=== PATIENT | male | born 1965 | race African-American/Black ===

== ENCOUNTER 2018-10-28 07:42 | Day surgery (SDC) | payer MEDICAID ==
--- NOTE | 2018-10-28 09:31 | NUR ---
PT AMBULATED TO UNIT. PT IS A&OX4. JAN IS AT BEDSIDE. PT IS ABLE TO SIGN FOR HIMSELF. CONSENT IS SIGNED AND BELONGINGS GIVEN TO . PT IS AWAITING TO BE TAKEN TO OR.
[2018-10-28] MEDS ORDERED: HYDROMORPHONE INJ 2 MG/ML DISP.SYRIN ONE (10:31)
[2018-10-28] MEDS ORDERED: MIDAZOLAM HCL 2 MG/2ML VIAL ONE (10:32)
[2018-10-28] MEDS ORDERED: ROCURONIUM BROMIDE 50 MG/5 ML ONE (10:32)
[2018-10-28] MEDS ORDERED: EPINEPHRINE (1:1000) 1 MG/ML AMPUL ONE (10:53)
[2018-10-28] MEDS ORDERED: BUPIVACAINE 0.5 % PF 150 MG/30 ML VIAL ONE (10:53)
[2018-10-28] MEDS ORDERED: LABETALOL HCL IV 100MG VIAL ONE (11:51)
[2018-10-28] MEDS ORDERED: BUPIVACAINE 0.25% 75 MG/30 ML VIAL ONE (12:14)
[2018-10-28] MEDS ORDERED: FENTANYL PF 100MCG/2ML AMPUL ONE (12:17)
[2018-10-28] MEDS ORDERED: hydrALAZINE HCL IV 20 MG VIAL ONE (12:48)
[2018-10-28] MEDS ORDERED: HYDROCODONE/APAP 5/325MG 1 EACH TABLET PO PRN (14:30)
--- NOTE | 2018-10-28 14:56 | NUR ---
PT STATING HE FEELS FINE AND O2 SAT WAS 93% ON RA PT WAS ASLEEP WHEN AWOKEN PT SATURATION INCREASED TO 100%
[2018-10-28 15:00] VITALS: BP 116/65
[2018-10-28 15:19] VITALS: BP 123/69
--- NOTE | 2018-10-28 15:45 | NUR ---
D/C NOTES PT IS A&OX4. PT STATES PAIN LEVEL IS ACCEPTABLE, RATES PAIN AT A 3 OUT OF 10. PT WAS ABLE TO DRESS HIMSELF AND WAS ESCORTED BY WHO WILL BE DRIVING HIM HOME. PT TAKEN OUT BY WHEELCHAIR AND DRIVEN HOME IN PRIVATE CAR.
== END 2018-10-28 16:00 | disposition home or self-care (01) ==
LOC: DS 07:42 → MED 07:44 → UNDOADMIN 07:44 → UNDODISIN 15:45 → DS 16:00
PROVIDERS: ATTEND Specialist
DX: M75.41 Impingement syndrome of right shoulder (principal); M94.211 Chondromalacia, right shoulder; M65.811 Other synovitis and tenosynovitis, right shoulder; J45.909 Unspecified asthma, uncomplicated; E66.01 Morbid (severe) obesity due to excess calories; M75.101 Unspecified rotator cuff tear or rupture of right shoulder, not specified as traumatic; Z79.899 Other long term (current) drug therapy
CPT/HCPCS: 23412; 29824; 29826; 88305; 88311; A4217; A6253; A6402; J0171; J0360; J0690; J1100; J1170; J1885; J2250; J2405; J2704; J2710; J3010; J3490 ×5; G0378